=== PATIENT | male | born 1955 | race Caucasian/White ===

== ENCOUNTER → 2017-10-18 | Outpatient (CLI) | payer OTHER | LOC: CIMAGING 10:13 | PROVIDERS: ATTEND Family Medicine | DX: I71.4 Abdominal aortic aneurysm, without rupture (principal); I25.10 Atherosclerotic heart disease of native coronary artery without angina pectoris | CPT/HCPCS: 71250-PO ==

== ENCOUNTER 2018-11-09 07:36 | Observation (INO) | payer OTHER ==
[2018-11-09] MEDS ORDERED: ASPIRIN EC 325 MG TAB PO ONE (07:41)
[2018-11-09] MEDS ORDERED: diphenhydrAMINE 25 MG CAP PO ONE (07:41)
[2018-11-09] MEDS ORDERED: DIAZEPAM 5 MG TAB PO ONE (07:41)
[2018-11-09] MEDS ORDERED: FAMOTIDINE 20 MG TAB PO ONE (07:41)
[2018-11-09] MEDS ORDERED: NS 1,000 ML IV ONE (07:41)
[2018-11-09 08:15] LABS: PLATELET COUNT 239 10^3/uL (150-400)
[2018-11-09 08:24] LABS: INR 0.98 (0.83-1.16); PROTIME(PATIENT) 13.2 SEC (12.0-15.0)
[2018-11-09] MEDS ORDERED: VERAPAMIL 5 MG/2 ML VIAL ONE (08:53)
[2018-11-09] MEDS ORDERED: LIDOCAINE 1% 300 MG/30 ML SDV ONE ×2 (08:53→11:00)
[2018-11-09] MEDS ORDERED: fentaNYL 100 MCG/2 ML INJ ONE (08:53)
[2018-11-09] MEDS ORDERED: MIDAZOLAM 2 MG/2 ML VIAL ONE ×2 (08:53→11:32)
[2018-11-09] MEDS ORDERED: HEPARIN 10,000 UNIT/10 ML MDV (1,000 UNIT/ML) ONE (08:54)
[2018-11-09] MEDS ORDERED: IOPAMIDOL (ISOVUE-370) 150 ML BTL IV ONE (08:54)
--- NOTE | 2018-11-09 10:02 | PDHPUP ---
History & Physical Update H&P update statement: This history and physical update is based on an assessment of the patient which was completed after admission or registration (within 24 hours), but prior to the surgery/procedure. H&P update: H&P reviewed & patient examined, no change in patient's condition since H&P completed
--- NOTE | 2018-11-09 10:05 | PDPROPOC ---
Sedation Plan of Care Sedation Plan of Care: vital signs stable, mental status noted, patient educated of risks, benefits, alternatives, patient can tolerate sedation ASA Classification: ASA 1 Planned drugs: fentanyl, midazolam Mallampati Score: Class 2 Mallampati Reference Image:
[2018-11-09] MEDS ORDERED: NITROGLYCERIN 1,500 MCG/15 ML VIAL MISC ONE (11:33)
[2018-11-09] MEDS ORDERED: PRASUGREL HCL 10 MG TAB ONE (12:03)
[2018-11-09] MEDS ORDERED: ONDANSETRON 4 MG/2 ML VIAL IVP PRN (12:55)
[2018-11-09] MEDS ORDERED: PRASUGREL HCL 10 MG TAB PO ONE (12:55)
[2018-11-09] MEDS ORDERED: NITROGLYCERIN 0.4 MG BTL SL PRN (12:55)
[2018-11-09] MEDS ORDERED: ATROPINE SULFATE 1 MG/10 ML SYR IVP PRN (12:55)
[2018-11-09] MEDS ORDERED: TEMAZEPAM 15 MG CAP PO PRN (12:55)
[2018-11-09] MEDS ORDERED: NS 1,000 ML IV SCH (13:00)
--- NOTE | 2018-11-09 13:05 | PDDXCAT ---
Diagnostic Cath Note - . Date: 11/09/18 Dielectric Tester: Ángel Indication: other (Chest pain and abnormal nuclear stress test) - Procedure Access: right wrist Procedure: left heart catheterization, coronary angiography, left ventriculogram , other (PCI of the LAD) - Materials Left Heart Cath size: 5F Left Heart Cath materials: other (TIG and Pigtail) - Findings-Left Heart Catheterization LM: None. LAD: The proximal LAD has approximately 60% stenosis. Immediately after the origin of the principal diagonal branch, the mid-LAD has a focal stenosis of 80- 90%. The remainder of the LAD and its principal diagonal branch have minimal luminal irregularities. LCX: The circumflex is codominant. The distal portion of the vessel has moderate disease up to 40-50%. RCA: The RCA is codominant. The mid-RCA has moderate disease up to 40-50%. LVEF: 70% Wall motion: Normal. Estimated blood loss: <50ml Closure method: TR Band Assessment: 1) Normal left ventricular systolic function. 2) Coronary artery disease as described above. 3) Successful PCI of the LAD with placement of a single drug-coated stent. Intervention: Based on the patient's clinical history and diagnostic angiography, the decision was made to perform PCI of the LAD. The patient received 3000 units of intravenous heparin in addition to the 5000 units that had been given at the beginning of the procedure. A 5 Swazi LBU guide catheter was advanced to the left main. An Intuition guidewire was advanced to the apical portion of the LAD. Predilatation of the target lesion in the proximal to mid-LAD was performed using a 2.5 x 15 mm Emerge balloon. A 3.0 x 24 mm Synergy stent was then advanced into position and deployed at high pressure. Final angiograms demonstrated 0% residual stenosis and DANIELLE-III flow.
[2018-11-10] MEDS ORDERED: ASPIRIN EC 325 MG TAB PO SCH (09:00)
[2018-11-10] MEDS ORDERED: PRASUGREL HCL 10 MG TAB PO SCH (09:00)
[2018-11-10] MEDS ORDERED: METOPROLOL SUCCINATE XR 25 MG TAB PO SCH (10:00)
--- NOTE | 2018-11-10 10:09 | ASDISCHSUM ---
Discharge Information Plan Status:Home with No Needs Medically Cleared to Leave:11/09/2018 Discharge Date:11/09/2018 CM D/C Disposition:Home, Routine, Self-Care ADT D/C Disposition:Home, Routine, Self-Care Projected Discharge Date:11/09/2018 Transportation at D/C: Discharge Delay Reason: Follow-Up Date:11/09/2018 Discharge Slot: Final Diagnosis: Placement Information Patient Contact Information Contact Name:JOEL Relationship: Address:[address] Work Phone: City:[place] Phone: State/[place] Code: Email: Financial Information Financial Class:HMO and PPO Plans Primary Plan Desc:[employer] Primary Plan Number:[id number] Secondary Plan Desc: Secondary Plan Number: Assessment Information LACE LACE Length of stay for Answers: Less than 1 day current admission Acuity / Level of Answers: No Care: Did the patient have an inpatient admission? Comorbidities - select Answers: Chronic pulmonary disease all that apply Coronary Artery Disease # of Emergency department Answers: 0 visits in the last 6 months Score: 4 Date Signed: 11/10/2018 10:08 AM Electronically Signed By:Elba Martino RN Intervention Information
[2018-11-10 10:10] VITALS: BP 130/69
[2018-11-10] MEDS ORDERED: ASPIRIN EC 81 MG TAB PO SCH (10:45)
--- NOTE | 2018-11-10 11:36 | GDS ---
[f rep st] DISCHARGE SUMMARY REASON FOR ADMISSION: Coronary artery disease. HOSPITAL COURSE: Please refer to Dr. Lester' recent office note which serves as the history and physical for this hospital encounter. Also, refer to my cardiac catheterization report. Briefly, the patient is a 63-year-old male with coronary atherosclerosis documented on a previous chest CT. In the summer of 2017, he underwent a nuclear stress test, which suggested possible anterior ischemia. However, at that time, the patient was asymptomatic. Recently he began to develop chest discomfort and symptoms of bright red flushing in the face. On that basis, Dr. Lester scheduled him for cardiac catheterization. That procedure was carried out yesterday and demonstrated normal left ventricular systolic function. He had non flow-limiting atherosclerosis of the circumflex and right coronary artery. The proximal LAD had 60% to 70% stenosis followed by a focal 90% stenosis just beyond the origin of the principal diagonal branch. He underwent PCI with placement of a 3.0 x 24 mm Synergy drug- coated stent. He had no complications from this procedure. This morning, he is stable and has had no issues at his right radial catheterization site. RECOMMENDATIONS AND DISPOSITION: The patient is discharged in good condition. He should be treated with dual anti-platelet therapy for 12 months. His aspirin dose will be 81 mg daily. For now, he is on Effient 10 mg daily. Genetic testing was sent this morning to determine whether or not he is a normal metabolizer of clopidogrel. If so, he could be switched to clopidogrel at a future office appointment if Effient proves to be cost prohibitive. Metoprolol succinate 25 mg daily will also be added to his regimen. He has a borderline thoracic aortic aneurysm. He has followup scheduled with Dr. Lester. He will continue his low-dose Crestor. His LDL yesterday was on target at 66. DISCHARGE DIAGNOSES: 1. Coronary artery disease, status post percutaneous coronary intervention of the left anterior descending. 2. Ascending thoracic aortic aneurysm. /[id number]/MODL MTDD
[2018-11-11] MEDS ORDERED: ASPIRIN 81 MG CHEWABLE TAB PO SCH (09:00)
--- NOTE | 2018-11-15 15:10 | CPEKG ---
Test Reason : OPEN Blood Pressure : / mmHG Vent. Rate : 068 BPM Atrial Rate : 069 BPM P-R Int : 180 ms QRS Dur : 086 ms QT Int : 389 ms P-R-T Axes : 067 050 033 degrees QTc Int : 414 ms Sinus rhythm Abnormal R-wave progression, early transition Confirmed by Paul Oropeza ([id number]) on 11/15/2018 3:10:17 PM Referred By: Hood Neal Confirmed By:Paul Oropeza
--- NOTE | 2018-11-15 16:36 | CPEKG ---
Test Reason : OPEN Blood Pressure : / mmHG Vent. Rate : 063 BPM Atrial Rate : 063 BPM P-R Int : 185 ms QRS Dur : 079 ms QT Int : 419 ms P-R-T Axes : 068 051 039 degrees QTc Int : 429 ms Sinus rhythm Abnormal R-wave progression, early transition Confirmed by Paul Oropeza ([id number]) on 11/15/2018 4:36:03 PM Referred By: Hood Neal Confirmed By:Paul Oropeza
== END 2018-11-10 12:05 | disposition home or self-care (01) ==
LOC: FCATH 07:36 → F2W 12:53
PROVIDERS: ADMIT Internal Medicine Interventional Cardiology; ATTEND Internal Medicine Interventional Cardiology
DX: I25.10 Atherosclerotic heart disease of native coronary artery without angina pectoris (principal); E78.5 Hyperlipidemia, unspecified; G47.33 Obstructive sleep apnea (adult) (pediatric); I71.2 Thoracic aortic aneurysm, without rupture; J44.9 Chronic obstructive pulmonary disease, unspecified
CPT/HCPCS: 92928; 93458; C1725; C1769; C1887; G0378; 81225-90; C1874; C9600; J1644; J2250; J3010; Q9967